=== PATIENT | female | born 1970 | race Caucasian/White ===

== ENCOUNTER 2019-01-22 19:00 | Emergency (ER) | payer MEDICAID ==
[~2019-01-22] VITALS: Ht 157.5 cm; Wt 77.3 kg
[~2019-01-22 19:00] MED LIST: IRON SULFATE PO; NORVASC2.5 MG PO
[2019-01-22 19:15] VITALS: Ht 157.5 cm; Wt 77.3 kg
[2019-01-22 19:39] LABS: BASOPHILS 0.1 % (0-2); EOSINOPHILS 1.6 % (0-7); HEMATOCRIT 40.7 % (36.0-48.0); HEMOGLOBIN 13.9 g/dL (12-16); IMMATURE GRANULOCYTES 0.3 % (0-5); LYMPHOCYTES 12.7 % (15-50); MCH 30.6 pg (26.0-34.0); MCHC 34.2 g/dL (31.0-37.0); MCV 89.6 fL (80.0-100.0); MEAN PLATELET VOLUME 8.9 fL (7.4-10.4); MONOCYTES 5.8 % (2-11); NEUTROPHILS 79.5 % (40-80); PLATELET COUNT 325 10x3/uL (130-400); RBC 4.54 10x6/uL (4.00-5.40); RDW 15.2 % (11.5-14.5); WBC 12.8 10x3/uL (4.8-10.8)
[2019-01-22 19:47] LABS: INR 0.95 (0.85-1.17); PROTIME 12.2 SECONDS (11.6-15.0)
[2019-01-22 19:55] LABS: ALBUMIN 3.4 g/dL (3.4-5.0); ALKALINE PHOSPHATASE 113 U/L (46-116); ALT (SGPT) 25 U/L (10-68); BILIRUBIN - TOTAL 0.21 mg/dL (0.2-1.3); CALC OSMOLALITY 273 mosm/kg (275-300); CALCIUM 8.7 mg/dL (8.5-10.1); CARBON DIOXIDE 20.5 mmol/L (21.0-32.0); CHLORIDE - SERUM 103 mmol/L (98-107); CREATININE - SERUM 0.8 mg/dL (0.6-1.3); GLUCOSE 119 mg/dL (74-106); POTASSIUM - SERUM 3.5 mmol/L (3.5-5.1); PROTEIN - SERUM 7.3 g/dL (6.4-8.2); SODIUM 137 mmol/L (136-145); UREA NITROGEN 9 mg/dL (7-18); eGFR NON AFRICAN AMERICAN 80 mL/min (90-120)
[2019-01-22] MEDS ORDERED: CARDIZEM CD180 MG PO (20:00)
[2019-01-22 20:05] LABS: CKMB 0.5 U/L (0.0-3.6); CREATINE KINASE 67 UL (21-215); MAGNESIUM - SERUM 1.8 mg/dL (1.8-2.4); TROPONIN-I < 0.017 ng/mL (0.000-0.060)
[2019-01-22 22:02] VITALS: BP 117/80
== END 2019-01-22 22:03 | disposition home or self-care (01) ==
LOC: D.ER 19:00
PROVIDERS: Emergency Medicine
DX: I47.1 Supraventricular tachycardia (principal)

== ENCOUNTER 2019-03-07 20:11 | Emergency (ER) | payer MEDICAID ==
[~2019-03-07] VITALS: Ht 157.5 cm; Wt 77.3 kg
[~2019-03-07 20:11] MED LIST changes: +CARDIZEM CD180 MG PO
[2019-03-07 20:20] VITALS: Ht 157.5 cm; Wt 77.3 kg
[2019-03-07] MEDS ORDERED: ROPINIROLE HCL0.5 MG PO (20:23)
[2019-03-07] MEDS ORDERED: QVAR REDIHALE10.6 G1 INH (20:23)
[2019-03-07] MEDS ORDERED: LISINOPRIL20 MG PO (20:23)
[2019-03-07 20:54] LABS: BASOPHILS 0.3 % (0-2); EOSINOPHILS 0.9 % (0-7); HEMATOCRIT 34.2 % (36.0-48.0); HEMOGLOBIN 11.2 g/dL (12-16); IMMATURE GRANULOCYTES 0.2 % (0-5); LYMPHOCYTES 17.7 % (15-50); MCHC 32.7 g/dL (31.0-37.0); MCV 91.7 fL (80.0-100.0); MEAN PLATELET VOLUME 8.9 fL (7.4-10.4); MONOCYTES 6.2 % (2-11); NEUTROPHILS 74.7 % (40-80); PLATELET COUNT 325 10x3/uL (130-400); RBC 3.73 10x6/uL (4.00-5.40); WBC 11.6 10x3/uL (4.8-10.8)
[2019-03-07 21:02] LABS: APTT 24.2 SECONDS (22.8-39.4); INR 1.13 (0.85-1.17)
[2019-03-07 21:09] LABS: ALBUMIN 3.3 g/dL (3.4-5.0); ALKALINE PHOSPHATASE 100 U/L (46-116); ALT (SGPT) 26 U/L (10-68); BILIRUBIN - TOTAL 0.22 mg/dL (0.2-1.3); CALC OSMOLALITY 280 mosm/kg (275-300); CALCIUM 8.5 mg/dL (8.5-10.1); CARBON DIOXIDE 21.6 mmol/L (21.0-32.0); CHLORIDE - SERUM 106 mmol/L (98-107); CREATININE - SERUM 1.3 mg/dL (0.6-1.3); GLUCOSE 120 mg/dL (74-106); POTASSIUM - SERUM 3.3 mmol/L (3.5-5.1); PROTEIN - SERUM 6.9 g/dL (6.4-8.2); SODIUM 139 mmol/L (136-145); UREA NITROGEN 19 mg/dL (7-18); eGFR NON AFRICAN AMERICAN 46 mL/min (90-120)
[2019-03-07 21:25] LABS: CKMB 1.2 U/L (0.0-3.6); CREATINE KINASE 155 UL (21-215); MAGNESIUM - SERUM 1.8 mg/dL (1.8-2.4)
[2019-03-07 21:28] LABS: TROPONIN-I 0.071 ng/mL (0.000-0.060)
[2019-03-08 00:35] VITALS: BP 158/92
== END 2019-03-08 00:39 | disposition home or self-care (01) ==
LOC: D.ER 20:11
PROVIDERS: Family Medicine
DX: I47.1 Supraventricular tachycardia (principal)

== ENCOUNTER → 2019-03-19 09:08 | Outpatient (CLI) | payer MEDICAID ==
[2019-03-07 20:20] VITALS: BMI 31.1
[~2019-03-19 09:08] MED LIST changes: +LISINOPRIL20 MG PO; +QVAR REDIHALE10.6 G1 INH; +ROPINIROLE HCL0.5 MG PO
--- NOTE | 2019-03-30 12:04 | ST ---
PATIENT:JOANA CARDONA MEDICAL RECORD: [id number] SEX: F LOCATION:[facility] ORDER #: ADMISSION DATE: 03/19/19 AGE OF PATIENT: 48 REFERRING PHYSICIAN: INTERPRETING PHYSICIAN: MEREDITH ELAINE MD DATE OF SERVICE: 03/19/2019 PROCEDURE: Nuclear stress test. INDICATION: Angina, shortness of breath, hypertension. TECHNIQUE: She was exercised on standard Lexiscan protocol with 30 mCi of sestamibi injected at peak stress, 10 mCi was used previously for rest images. FINDINGS: Gated SPECT reveals preserved ejection fraction at 77% with good wall motion and thickening and brightening throughout all segments. SPECT imaging Cardiolite was used as myocardial fusion agent. There is homogeneous uptake throughout all segments at rest and stress with no evidence of inducible ischemia or previous infarction. OVERALL IMPRESSION: 1. This is a normal nuclear stress test with no evidence of inducible ischemia or previous infarction. 2. Gated SPECT reveals a preserved ejection fraction at 77%. In this patient with ongoing symptomatology, the current scan does not suggest the presence of hemodynamically significant coronary artery disease. Evaluate noncardiac etiology of chest pain. TRANSINT:[id number] Voice Confirmation ID: [id number] DOCUMENT ID: [id number] MEREDITH ELAINE MD at 1204 CC: [id number] DICTATION DATE: 03/19/19 165 [employer]MENT IN[employer]ER AND SERVICER: 03/20/19 0119 DEP CLI 03/19/19 [facility] [address] [place] [address]
--- NOTE | 2019-03-30 12:04 | EC ---
PATIENT:JOANA CARDONA DATE OF SERVICE: 03/19/19 SEX: F MEDICAL RECORD: [id number] DATE OF : [birth year] [facility] AGE OF PATIENT: 48 ADMISSION DATE: 03/19/19 REFERRING PHYSICIAN: INTERPRETING PHYSICIAN: MEREDITH ROE MD ECHOCARDIOGRAM REPORT ECHO CHARGES 4 ECHO COMPLETE Date: 03/19/19 CLINICAL DIAGNOSIS: PALPITATIONS/SVT/ANGINA/SOB/ BRYANT/HTN ECHOCARDIOGRAPHIC MEASUREMENTS (adult normal given) AC root (d.<3.7cm) 3.1 cm LV Septum d (<1.2 cm> 1.4 cm Valve Excursion 2.2 cm LV Septum (systole) 1.8 cm Left Atria (s.<4.0cm> 3.7 cm LVPW d(<1.2cm) 1.2 cm RV (d.<2.3cm) 2.4 cm LVPW (sytole) 1.9 cm LV diastole(<5.6CM) 5.0 cm MV E-F(>70mm/sec) cm LV systole 3.2 cm LVOT Diameter 1.9 cm MV exc.(>10mm) cm Est.ejection fraction (50-75%) % DOPPLER: LVIT cm/sec A 108 cm/sec E 92.0 cm/sec LA cm/sec RVSP 21.2 mmHg LVOT 117 cm/sec AOP1/2T m/s Asc. 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 Roe TAPE# PACS Pericardial Effusion N DATE OF SERVICE: 03/19/2019 ECHOCARDIOGRAM FINDINGS: 1. Left ventricular chamber size is within normal limits. Left ventricular systolic function is normal. Overall ejection fraction estimated at 55%. 2. Left atrium, right atrium, and right ventricular chamber sizes are within normal limits. 3. Valvular structures have normal structure and motion. ECHOCARDIOGRAM REPORT [id number] JOANA CARDONA 4. Doppler interrogation reveals no significant valvular insufficiency or stenosis. Pulmonary systolic pressure is estimated at 21 mmHg. 5. No evidence of pericardial effusion or left ventricular thrombus. TRANSINT:[id number] Voice Confirmation ID: [id number] DOCUMENT ID: [id number] MEREDITH ROE MD at 1204 CC: [id number] DICTATION DATE: 03/19/19 1525 FAN RUNNER: 03/19/19 1615 DEP CLI 03/19/19 [place] [id number]
== END | disposition home or self-care (01) ==
LOC: D.HCCARDIO 09:08
PROVIDERS: ATTEND Internal Medicine Interventional Cardiology
DX: I20.9 Angina pectoris, unspecified (principal)

== ENCOUNTER 2019-12-05 21:19 | Emergency (ER) | payer MEDICAID ==
[~2019-12-05] VITALS: Ht 157.5 cm; Wt 72.7 kg
[2019-12-05 21:38] VITALS: Ht 157.5 cm; Wt 72.7 kg
[2019-12-05] MEDS ORDERED: TOPROL XL100 MG PO (21:41)
[2019-12-05] MEDS ORDERED: OMEPRAZOLE40 MG PO (21:42)
[2019-12-05] MEDS ORDERED: LOTREL 5-20 MG1 CAP PO (21:42)
[2019-12-05] MEDS ORDERED: ZYLOPRIM100 MG PO (21:43)
[2019-12-05] MEDS ORDERED: ANORO ELLIPTA1 EACH INH (21:44)
[2019-12-05] MEDS ORDERED: VENTOLIN HFA [SP8 GM INH (21:45)
--- NOTE | 2019-12-05 22:16 | NUR ---
CHARGE NURSE AND ATTENDING NOTIFIED OF ASSESSMENT RESULTS. DR. SIMS NOTIFIED OF BEHAVIOR AND ASSESSMENT RESULTS. PT IS A LOW RISK PER DR. SIMS. DR. SIMS STATES TO GIVE PT RESOURCES AT TIME OF DISCHARGE. NO FURTHER ORDERS AT THIS TIME. RESOURCES REVIEWED WITH PT AND SHE VERBALIZED UNDERSTANDING.
[2019-12-05 22:23] LABS: BASOPHILS 0.2 % (0-2); BILIRUBIN NEGATIVE (NEGATIVE); EOSINOPHILS 3.6 % (0-7); GLUCOSE NEGATIVE (NEGATIVE); HEMATOCRIT 46.3 % (36.0-48.0); HEMOGLOBIN 15.7 g/dL (12-16); KETONE NEGATIVE (NEGATIVE); LYMPHOCYTES 34.6 % (15-50); MCH 35.2 pg (26.0-34.0); MCHC 33.9 g/dL (31.0-37.0); MCV 103.8 fL (80.0-100.0); MONOCYTES 8.7 % (2-11); NEUTROPHILS 52.9 % (40-80); NITRITE NEGATIVE (NEGATIVE); PLATELET COUNT 255 10x3/uL (130-400); RBC 4.46 10x6/uL (4.00-5.40); UROBILINOGEN NORMAL (NORMAL)
[2019-12-05 22:33] LABS: CALC OSMOLALITY 277 mosm/kg (275-300); CALCIUM 8.5 mg/dL (8.5-10.1); CARBON DIOXIDE 25.6 mmol/L (21.0-32.0); CHLORIDE - SERUM 102 mmol/L (98-107); CREATININE - SERUM 0.7 mg/dL (0.6-1.3); GLUCOSE 90 mg/dL (74-106); POTASSIUM - SERUM 3.6 mmol/L (3.5-5.1); SODIUM 140 mmol/L (136-145); UREA NITROGEN 11 mg/dL (7-18); eGFR NON AFRICAN AMERICAN > 90 mL/min (90-120)
[2019-12-05 22:41] LABS: ALBUMIN 3.9 g/dL (3.4-5.0); ALKALINE PHOSPHATASE 101 U/L (30-120); ALT (SGPT) 92 U/L (10-68); AMYLASE - SERUM 80 U/L (25-115); BILIRUBIN - TOTAL 0.39 mg/dL (0.2-1.3); LIPASE 370 U/L (73-393); TROPONIN-I < 0.017 ng/mL (0.000-0.060)
[2019-12-06 00:33] VITALS: BP 165/102
== END 2019-12-06 00:33 | disposition home or self-care (01) ==
LOC: D.ER 21:19
PROVIDERS: Emergency Medicine
DX: R10.11 Right upper quadrant pain (principal); R74.8 Abnormal levels of other serum enzymes; K76.0 Fatty (change of) liver, not elsewhere classified; F10.11 Alcohol abuse, in remission; J44.9 Chronic obstructive pulmonary disease, unspecified; Z72.0 Tobacco use